=== PATIENT | male | born 1995 | race African-American/Black ===

== ENCOUNTER 2018-03-01 19:21 | Emergency (ER) | payer MEDICAID ==
[~2018-03-01] VITALS: Ht 172.7 cm; Wt 61.0 kg
[2018-03-01 21:34] VITALS: BP 104/64
== END 2018-03-01 21:36 | disposition left against medical advice (07) ==
LOC: ER 20:00
DX: M25.512 Pain in left shoulder (principal); M54.5 Low back pain; Z53.21 Procedure and treatment not carried out due to patient leaving prior to being seen by health care provider